=== PATIENT | female | born 2000 | race Hispanic/Latino ===

== ENCOUNTER 2021-01-09 15:57 | Emergency (ER) | payer SELFPAY ==
--- NOTE | 2021-01-09 17:18 | RAD REPORT ---
EXAM DESCRIPTION: RAD - Knee Right 3 View - 01/09/2021 4:59 pm CLINICAL HISTORY: PAIN COMPARISON: No comparisons FINDINGS: No acute fracture or dislocation is seen.
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
[2021-01-09 19:08] VITALS: BP 124/85; TEMP 98.3; O2SAT 98
== END 2021-01-09 18:15 | disposition home or self-care (01) ==
LOC: ER 15:57
DX: M25.561 Pain in right knee (principal); Z87.891 Personal history of nicotine dependence
CPT/HCPCS: 99283

== ENCOUNTER 2021-01-20 16:22 | Emergency (ER) | payer SELFPAY ==
[2021-01-20 16:54] LABS: Urine Blood Negative (Negative); Urine Glucose Negative (Negative); Urine Protein Negative (Negative); Urine pH 7.5 (5.0-7.0)
--- NOTE | 2021-01-20 17:11 | EDPHYS ---
Physician Documentation [facility] Name: Feliciano Morse Age: 20 yrs Sex: Female : 2000 Arrival Date: 01/20/2021 Time: 16:26 Bed 6 Private MD: ED Physician Martín Balderrama HPI: 01/20 17:17 This 20 yrs old Female presents to ER via Ambulatory with complaints of Lump kb on breast. 17:17 Pt reports she was taking a shower and noticed that her right breast was larger than kb normal. States she started getting worried about it, then thought she may have seen and felt a lump so she wanted to get it checked out. Also reports she is a week late on her period, but had a negative test yesterday . Onset: The symptoms/episode began/occurred just prior to arrival. Severity of symptoms: At their worst the symptoms were mild in the emergency department the symptoms are unchanged. The patient has not experienced similar symptoms in the past. The patient has not recently seen a physician. 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 Flu vaccine is up to date. - Social history:: Smoking status: Patient/guardian denies using tobacco, Stopped _ months ago 3 Patient uses alcohol, occasionally. Patient/guardian denies using street drugs, IV drugs. ROS: 17:12 Constitutional: Negative for fever, chills, and weight loss. kb 17:12 Skin: Positive for right breast enlarged. 17:12 All other systems are negative. Exam: 17:15 Constitutional: This is a well developed, well nourished patient who is awake, alert, kb and in no acute distress. Head/Face: Normocephalic, atraumatic. ENT: Moist Mucous membranes Chest/axilla: Normal chest wall appearance and motion. Respiratory: Respirations even and unlabored. No increased work of breathing, no retractions or nasal flaring. Skin: Warm, dry with normal turgor. Normal color. MS/ Extremity: Pulses equal, no cyanosis. Neurovascular intact. Full, normal range of motion. Neuro: Awake and alert, GCS 15, oriented to person, place, time, and situation. Moves all extremities. Normal gait. Psych: Awake, alert, with orientation to person, place and time. Behavior, mood, and affect are within normal limits. Vital Signs: 16:31 BP 114 / 70; Pulse 79; Resp 16 S; Temp 97.6(TE); Pulse Ox 100% on R/A; Weight 110.68 kg ca1 (R); Height 5 ft. 2 in. (157.48 cm); Pain 0/10; 16:42 BP 136 / 71; Pulse 79; Resp 18; Pulse Ox 100% on R/A; ld1 17:17 BP 128 / 70; Pulse 72; Resp 18; Pulse Ox 100% on R/A; ld1 16:31 Body Mass Index 44.63 (110.68 kg, 157.48 cm) ca1 MDM: 16:37 Patient medically screened. kb 17:11 Data reviewed: vital signs, nurses notes. Data interpreted: Pulse oximetry: on room air kb is 100 %. Interpretation: normal. Counseling: I had a detailed discussion with the patient and/or guardian regarding: the historical points, exam findings, and any diagnostic results supporting the discharge/admit diagnosis, the need for outpatient follow up, an OB/Gyne specialist, to return to the emergency department if symptoms worsen or persist or if there are any questions or concerns that arise at home. 01/20 16:54 Order name: Urine Dipstick-Ancillary; Complete Time: 16:54 EDMS 01/20 16:37 Order name: Urine Dipstick-Ancillary (obtain specimen); Complete Time: 16:51 kb 01/20 16:54 Order name: Urine Test (obtain specimen); Complete Time: 17:01 kb Administered Medications: No medications were administered Disposition: 17:23 Co-signature as Attending Physician, Martín Balderrama MD I agree with the assessment and kdr plan of care. Disposition: 01/20/21 17:10 Discharged to Home. Impression: Person with feared health complaint in whom no diagnosis is made. - Condition is Stable. - Discharge Instructions: Breast Self-Awareness, [id number], Breast Tenderness. - Medication Reconciliation Form, Thank You Letter, Antibiotic Education, Prescription Opioid Use form. - Follow up: Emergency Department; When: As needed; Reason: Worsening of condition. Follow up: Private Physician; When: 2 - 3 days; Reason: Recheck today's complaints, Continuance of care, Re-evaluation by your physician. Signatures: Zena Gratn, ELEANOR-C BED SETTER-Martín Coyle MD MD [facility] Priscilla Monteiro RN RN ca1 Brissa Chilel RN RN ld1 Corrections: (The following items were deleted from the chart) 17:18 17:10 01/20/2021 17:10 Discharged to Home. Impression: Person with feared health ld1 complaint in whom no diagnosis is made. Condition is Stable. Forms are Medication Reconciliation Form, Thank You Letter, Antibiotic Education, Prescription Opioid Use. Follow up: Emergency Department; When: As needed; Reason: Worsening of condition. Follow up: Private Physician; When: 2 - 3 days; Reason: Recheck today's complaints, Continuance of care, Re-evaluation by your physician. kb
--- NOTE | 2021-01-20 17:11 | ER ---
Nurse's Notes [facility] Name: Feliciano Morse Age: 20 yrs Sex: Female : 2000 Arrival Date: 01/20/2021 Time: 16:26 Bed 6 Private MD: Diagnosis: Person with feared health complaint in whom no diagnosis is made Presentation: 01/20 16:31 Chief complaint: Patient states: Been noticing that my R left breast is bigger and I ca1 feel a lump. Noticed it 2 days INWEAVER. Delayed on menstrual period for a week now, took 1 test yesterday, which was negative. Denies pain, reports discomfort. Coronavirus screen: Client denies travel out of the [place] in the last 14 days. At this time, the client does not indicate any symptoms associated with coronavirus-19. Ebola Screen: Patient negative for fever greater than or equal to 101.5 degrees Fahrenheit, and additional compatible Ebola Virus Disease symptoms Patient denies exposure to infectious person. Patient denies travel to an Ebola-affected area in the 21 days before illness onset. No symptoms or risks identified at this time. Initial Sepsis Screen: Does the patient meet any 2 criteria? No. Patient's initial sepsis screen is negative. Does the patient have a suspected source of infection? No. Patient's initial sepsis screen is negative. Risk Assessment: Do you want to hurt yourself or someone else? Patient reports no desire to harm self or others. Onset of symptoms was January 20, 2021. 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 Flu vaccine is up to date. - Social history:: Smoking status: Patient/guardian denies using tobacco, Stopped _ months ago 3 Patient uses alcohol, occasionally. Patient/guardian denies using street drugs, IV drugs. Screenin:50 Abuse screen: Denies threats or abuse. Denies injuries from another. Nutritional ld1 screening: No deficits noted. Tuberculosis screening: No symptoms or risk factors identified. Fall Risk None identified. Assessment: 16:42 General: Appears in no apparent distress. comfortable, Behavior is calm, cooperative, ld1 appropriate for age. Pain: Denies pain. Neuro: Level of Consciousness is awake, alert, obeys commands, Oriented to person, place, time, situation, Appropriate for age. Cardiovascular: Capillary refill < 3 seconds Patient's skin is warm and dry. Respiratory: Airway is patent Respiratory effort is even, unlabored, Respiratory pattern is regular, symmetrical. GI: Abdomen is round non-distended. :. EENT: No signs and/or symptoms were reported regarding the EENT system. Derm: No signs and/or symptoms reported regarding the dermatologic system. Derm: Reports Right breast lump. Denies pain. Musculoskeletal: No signs and/or symptoms reported regarding the musculoskeletal system. 17:17 Reassessment: Patient appears in no apparent distress at this time. No changes from ld1 previously documented assessment. Vital Signs: 16:31 BP 114 / 70; Pulse 79; Resp 16 S; Temp 97.6(TE); Pulse Ox 100% on R/A; Weight 110.68 kg ca1 (R); Height 5 ft. 2 in. (157.48 cm); Pain 0/10; 16:42 BP 136 / 71; Pulse 79; Resp 18; Pulse Ox 100% on R/A; ld1 17:17 BP 128 / 70; Pulse 72; Resp 18; Pulse Ox 100% on R/A; ld1 16:31 Body Mass Index 44.63 (110.68 kg, 157.48 cm) ca1 ED Course: 16:26 Patient arrived in ED. mr 16:29 Zena Grant FNP-C [facility]. kb 16:29 Martín Balderrama MD is Attending Physician. kb 16:33 Triage completed. ca1 16:34 Arm band placed on right wrist. ca1 16:41 Brissa Chilel, SALMA is Primary Nurse. ld1 16:50 Patient has correct armband on for positive identification. Bed in low position. Side ld1 rails up X2. Pulse ox on. NIBP on. 17:18 No provider procedures requiring assistance completed. Patient did not have IV access ld1 during this emergency room visit. Administered Medications: No medications were administered Outcome: 17:10 Discharge ordered by . kb 17:18 Discharged to home ambulatory. ld1 17:18 Condition: stable 17:18 Discharge instructions given to patient, Instructed on discharge instructions, follow up and referral plans. Demonstrated understanding of instructions, follow-up care. 17:18 Patient left the ED. ld1 Signatures: Zena Grant, ISOTOPE TECHNICIAN-C ISOTOPE TECHNICIAN-Sury Collier mr Priscilla Monteiro, RN RN ca1 Brissa Chilel RN RN ld1
[2021-01-20 17:22] VITALS: TEMP 97.6; O2SAT 100
[2021-01-20 17:25] VITALS: BP 128/70
== END 2021-01-20 17:18 | disposition home or self-care (01) ==
LOC: ER 16:22
DX: Z71.1 Person with feared health complaint in whom no diagnosis is made (principal)
CPT/HCPCS: 81003; 99283